=== PATIENT | female | born 1985 | race Two or more races ===

== ENCOUNTER 2018-02-06 10:36 | Emergency (ER) | payer MEDICAID ==
[~2018-02-06] VITALS: Ht 157.5 cm; Wt 64.4 kg
[2018-02-06 10:45] VITALS: Ht 157.5 cm; Wt 64.4 kg
[2018-02-06 11:49] LABS: CALCIUM 9.2 mg/dL (8.5-10.1); CARBON DIOXIDE 27.8 mmol/L (21-32); CHLORIDE SERUM 103 mmol/L (98-107); CREATININE SERUM 0.6 mg/dL (0.6-1.0); GFR1 > 60 mL/min; GLUCOSE SERUM 96 mg/dL (74-106); POTASSIUM SERUM 4.2 mmol/L (3.5-5.1); SODIUM SERUM 139 mmol/L (136-145)
[2018-02-06 11:54] LABS: ALBUMIN 3.8 g/dL (3.4-5.0); ALKALINE PHOSPHATASE 75 U/L (46-116); ALT/SGPT 16 U/L (14-59); AST/SGOT 10 U/L (15-37); BILIRUBIN TOTAL 0.7 mg/dL (0.20-1.00); TOTAL PROTEIN, SERUM 7.8 g/dL (6.4-8.2)
[2018-02-06 12:02] LABS: FREE T4 0.93 ng/dL (0.76-1.46); FREE THYROXINE INDEX 3.1 ug/dL (1.4-4.5); T4(THYROXINE) 9.9 ug/dL (4.7-13.3)
[2018-02-06 12:03] LABS: T3 TOTAL 1.04 ng/mL
[2018-02-06 12:06] LABS: BASOPHIL % 0.6 % (0-2); PLATELET COUNT 270 x10^3mcL (130-400)
[2018-02-06 12:07] LABS: RED CELL DISTRIBUTION WIDTH 14.8 % (11.5-14.5)
[2018-02-06 13:05] VITALS: BP 128/82
== END 2018-02-06 13:05 | disposition home or self-care (01) ==
LOC: ED 10:36
PROVIDERS: Emergency Medicine
DX: R51 Headache (principal); R42 Dizziness and giddiness; H53.8 Other visual disturbances
CPT/HCPCS: 36415; 84439